=== PATIENT | male | born 1960 | race Caucasian/White ===

== ENCOUNTER 2017-10-05 14:08 | Emergency (ER) | payer MEDICARE ==
[~2017-10-05 14:08] MED LIST: ALB18R INH; AMLO-99 PO; ASPI-1471 PO; ATOR40TA69 PO; AZIT-18 PO; CLON-389 PO; HYDR-4305 PO; VALA100062 PO
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
[2017-10-05] MEDS ORDERED: MORPHINE 4 MG/ML SDV IVP ONE ×2 (15:00→16:25)
[2017-10-05 15:05] LABS: PLATELET COUNT, AUTOMATED 338 K/uL (150-450)
[2017-10-05] MEDS ORDERED: OXYC-870 PO (15:16)
[2017-10-05] MEDS ORDERED: NS 0.9% 25 ML BAG 50 ML ONE (15:16)
[2017-10-05] MEDS ORDERED: IOPAMIDOL 76% 100 ML INFUS BTL 100 ML ONE (15:16)
[2017-10-05] MEDS ORDERED: METH-280 PO (15:18)
[2017-10-05] MEDS ORDERED: DILT180C81 PO (15:19)
[2017-10-05] MEDS ORDERED: BISO5TAB23 PO (15:21)
--- NOTE | 2017-10-05 15:28 | EKG ---
FACILITY: [facility] - [place] PATIENT NAME: RIO ELIAS : [id number] MR: [id number] V: [id number] EXAM DATE: ORDERING PHYSICIAN: RIVKA BAEZ TECHNOLOGIST: JUAN Marie Reason : CHEST PAIN Blood Pressure : / mmHG Vent. Rate : 124 BPM Atrial Rate : 124 BPM P-R Int : 160 ms QRS Dur : 094 ms QT Int : 304 ms P-R-T Axes : 026 -08 049 degrees QTc Int : 436 ms Sinus tachycardia Inferior infarct , age undetermined Poor R wave progression Abnormal ECG Confirmed by RENATA BALES ([id number]) on 10/06/2017 6:42:25 AM Referred By: CROW Confirmed By:RENATA BALES
--- NOTE | 2017-10-05 16:03 | RADIOLOGY IMAGING REPORT ---
FACILITY: [facility] - [place] PATIENT NAME: Wayne Schroeder : 1960 MR: [id number] V: [id number] EXAM DATE: ORDERING PHYSICIAN: RIVKA BAEZ TECHNOLOGIST: Location: [facility] Patient: Wayne Schroeder : 1960 Visit/Account:[id number] Date of Sevice: 10/05/2017 EXAMINATION: Left knee radiographs HISTORY: Pain COMPARISON: None. FINDINGS: Frontal, oblique, lateral and sunrise views obtained. Bones: Normal. Joint spaces: Normal. Alignment: Normal. Soft tissues: Normal. Effusion: None. IMPRESSION: Normal left knee radiographs. Report Dictated By: Jacoby Newman MD at 10/05/2017 3:58 PM Report E-Signed By: Jacoby Newman MD at 10/05/2017 3:59 PM WSN:[email or web address]
--- NOTE | 2017-10-05 16:06 | RADIOLOGY IMAGING REPORT ---
[place] [facility] [place] NAME: Wayne Schroeder : 1960 MR: [id number] V: [id number] EXAM DATE: ORDERING PHYSICIAN: RIVKA BAEZ TECHNOLOGIST: Location: [facility] [place] Patient: Wayne Schroeder : 1960 Visit/Account:[id number] Date of Sevice: 10/05/2017 EXAMINATION: Left tibia and fibula radiographs HISTORY: Pain, trauma COMPARISON: None. FINDINGS: 2 frontal views and a lateral view obtained. Bones: Normal. Joint spaces: Normal. Alignment: Normal. Soft tissues: Normal. IMPRESSION: No acute finding. Report Dictated By: Jacoby Newman MD at 10/05/2017 3:59 PM Report E-Signed By: Jacoby Newman MD at 10/05/2017 4:02 PM WSN:[email or web address]
--- NOTE | 2017-10-05 16:26 | RADIOLOGY IMAGING REPORT ---
FACILITY: [facility] PATIENT NAME: Wayne Schroeder : 1960 MR: [id number] V: [id number] EXAM DATE: ORDERING PHYSICIAN: RIVKA BAEZ TECHNOLOGIST: Location: [facility] [place] Patient: Wayne Schroeder : 1960 Visit/Account:[id number] Date of Sevice: 10/05/2017 CT angiogram chest with contrast Indication: Short of breath. Comparison: 03/08/2016. Technique: Axial CT images are obtained through the chest after administration of 100 mL Isovue 370 I V contrast. Reformatted coronal and sagittal images were reviewed as well as coronal MIP images. One of the following dose optimization techniques was utilized in the performance of this exam: auto mated exposure control; adjustment of the mA and/or kV according to the patient's size; or use of an iterative reconstruction technique. Specific details can be referenced in the facility's radiology C T exam operational policy. FINDINGS: No evidence of filling defect within the pulmonary vasculature to suggest pulmonary embolus. The heart is upper limits normal size without pericardial effusion. The aorta shows no aneurysm or di ssection. Mediastinum and hilar regions show several small lymph nodes which are stable. No enlarged lymph node or abnormal density. The lungs show no consolidation, pleural effusion or pneumothorax. Lung the medial right hemidiaphrag m aspect of the right lower lobe is a small nodular opacity measuring 1.8 x 1.7 x 1.6 cm. This is not appreciated previously. No other nodular opacities. No focal interstitial opacities. Airways are tyler ar. The bony structures show no acute fracture or aggressive bony lesion. Old posterior 11th left rib fra cture. Chest wall shows no enlarged axillary lymph nodes or masses. The right thyroid again is enlarg ed and heterogeneous without a defined lesion. Shows a stable small cyst. Upper abdomen is otherwise unremarkable. IMPRESSION: 1. No evidence of pulmonary embolus. 2. No acute cardiopulmonary disease. 3. Focal nodular opacity along the medial right lower lobe at the diaphragmatic region which is not s een previously. This may represent a focal area of atelectasis. However suggest a short follow-up [address] scan of the chest to evaluate for improvement or other etiology such as a lung nodule. 4. Other stable findings as above. Report Dictated By: Jomar Valladares at 10/05/2017 4:11 PM Report E-Signed By: Jomar Valladares at 10/05/2017 4:22 PM WSN:[id number]
[2017-10-05 16:30] VITALS: BP 160/112
--- NOTE | 2017-10-05 16:47 | RADIOLOGY IMAGING REPORT ---
FACILITY: [facility] - [place] PATIENT NAME: Wayne Schroeder : 1960 MR: [id number] V: [id number] EXAM DATE: ORDERING PHYSICIAN: RIVKA BAEZ TECHNOLOGIST: Location: [facility] [place] Patient: Wayne Schroeder : 1960 Visit/Account:[id number] Date of Sevice: 10/05/2017 EXAMINATION: Left LOWER EXTREMITY VENOUS DOPPLER ULTRASOUND DATE: 10/05/2017 4:40 PM CLINICAL INFORMATION: Evaluate for DVT REASON FOR STUDY: leg swelling TECHNIQUE: Grayscale, color Doppler, and spectral Doppler ultrasound was performed of the lower extre mity veins to evaluate for deep venous thrombosis. COMPARISON: None FINDINGS: The left common femoral, femoral, and popliteal veins are compressible with normal flow on color Dopp ler imaging. There is also normal Doppler flow of the profunda femoris and greater saphenous veins at the confluence with the common femoral vein. The left posterior tibial and peroneal veins demonstrate normal flow The contralateral right common femoral vein demonstrates normal flow on color Doppler and respiratory variations on spectral Doppler. IMPRESSION: No evidence of deep venous thrombosis in the left lower extremity veins. Report Dictated By: Kai Kirby MD at 10/05/2017 4:40 PM Report E-Signed By: Kai Kirby MD at 10/05/2017 4:42 PM WSN:[id number]
[2017-10-05] MEDS ORDERED: OXYC-865 PO (17:05)
== END 2017-10-05 17:20 | disposition home or self-care (01) ==
LOC: ER 14:12
DX: R07.89 Other chest pain (principal); T70.29XA Other effects of high altitude, initial encounter; R07.81 Pleurodynia; R00.0 Tachycardia, unspecified; R94.31 Abnormal electrocardiogram [ECG] [EKG]
CPT/HCPCS: 71275; 73564; 73590; 83880; 84484; 85025; 93005; 93971; 96374; 96376; 99284; J2270; Q9967; 82040; 82247; 82310; 82374; 82435; 82565; 82947; 84075; 84132; 84155; 84295; 84450; 84460; 84520